=== PATIENT | female | born 1965 | race Hispanic/Latino ===

== ENCOUNTER 2018-02-23 07:10 | Emergency (ER) | payer SELFPAY ==
[2018-02-23 07:36] LABS: #Basophils 0.1 thou/uL (0.0-0.2); #Eosinphils 0.1 thou/uL (0.0-0.7); #Lymphocytes 2.8 thou/uL (1.20-3.40); #Monocytes 0.5 thou/uL (0.11-0.59); #Neutrophils 5.4 thou/uL (1.40-6.50); %Basophils 0.9 % (0.0-1.0); %Eosinophils 1.4 % (0.0-10.0); %Lymphocytes 31.4 % (21.0-51.0); %Monocytes 5.6 % (0.0-10.0); %Neutrophils 60.8 % (42.0-75.0); Hemoglobin 13.4 g/dL (12.0-16.0); Mean Corpuscular HGB CONC 33.9 g/dL (32.0-36.0); Mean Corpuscular Hemoglobin 32.5 pg (27.0-31.0); Mean Corpuscular Volume 95.8 fl (81.0-99.0); Mean Platelet Volume 7.9 fL (7.4-10.4); Platelet Count 289 thou/uL (130-400); RBC Distribution Width 12.3 % (11.5-14.5); Red Blood Cell (RBC) Count 4.12 mill/uL (4.20-5.40); White Blood Cell (WBC) Count 8.8 thou/uL (4.8-10.8)
[2018-02-23 07:56] LABS: Bilirubin Negative (Negative); Blood, Urine Large (Negative); Clarity CLOUDY (Clear); Glucose, Urine (Dipstick) Negative (Negative); Leukocyte Large (Negative); Nitrite Negative (Negative); Protein, Urine (Dipstick) 100 mg/dL (Neg-Trace); Specific Gravity, Urine 1.013 (1.002-1.036); Urobilinogen 0.2 mg/dL (0.2-1.0); pH, Urine 5.5 (5.0-9.0)
[2018-02-23 07:58] LABS: Bacteria/HPF Rare-Few HPF (None Seen); Hyaline Casts/LPF 0-3 HYALINE CAST LPF (0-3 Hyaline); Pathc Cast-AUWi Flag 0.14 (0-2.49); RBC/HPF GREATER THAN 50-TNTC HPF (0-3); Squamous Epithelial 0-3 HPF (0-3)
[2018-02-23 08:06] LABS: ALT (SGPT) 31 U/L (8-55); AST (SGOT) 18 U/L (5-34); Albumin 4.1 g/dL (3.5-5.0); Alkaline Phosphatase 107 U/L (40-150); Anion Gap 13 mmol/L (10-20); BUN (Urea Nitrogen) 11 mg/dL (9.8-20.1); Bilirubin, Total 0.5 mg/dL (0.2-1.2); Calc. Creatinine Clearance 0 mL/min (70-130); Calcium 9.6 mg/dL (7.8-10.44); Carbon Dioxide 25 mmol/L (22-29); Chloride 106 mmol/L (98-107); Estimated GFR-MDRD 83; Globulin 3.3 g/dL (2.4-3.5); Glucose 153 mg/dL (70-105); Potassium 4.5 mmol/L (3.5-5.1); Protein, Total 7.4 g/dL (6.0-8.3); Sodium 139 mmol/L (136-145)
== END 2018-02-23 08:26 | disposition home or self-care (01) ==
LOC: ERS 07:10
DX: N30.01 Acute cystitis with hematuria (principal); E11.9 Type 2 diabetes mellitus without complications; I10 Essential (primary) hypertension
CPT/HCPCS: 36415; 80053; 81003; 81015; 85025; 99283

== ENCOUNTER 2019-03-24 16:14 | Inpatient (IN) | payer SELFPAY ==
[~2019-03-24 16:14] MED LIST: ISOVUE-370 76%-LOCM 1 ML ONE
[2019-03-24 17:27] LABS: #Basophils 0.1 thou/uL (0.0-0.2); #Monocytes 0.5 thou/uL (0.11-0.59); #Neutrophils 11.1 thou/uL (1.40-6.50); %Basophils 0.4 % (0.0-1.0); %Eosinophils 0.2 % (0.0-10.0); %Lymphocytes 14.7 % (21.0-51.0); %Monocytes 3.5 % (0.0-10.0); %Neutrophils 81.1 % (42.0-75.0); Hemoglobin 13.5 g/dL (12.0-16.0); Mean Corpuscular HGB CONC 34.9 g/dL (32.0-36.0); Mean Corpuscular Hemoglobin 31.7 pg (27.0-31.0); Mean Corpuscular Volume 90.8 fL (78.0-98.0); Mean Platelet Volume 8.2 fL (7.4-10.4); Platelet Count 325 thou/uL (130-400); Red Blood Cell (RBC) Count 4.27 mill/uL (4.20-5.40); White Blood Cell (WBC) Count 13.7 thou/uL (4.8-10.8)
[2019-03-24 17:53] LABS: ALT (SGPT) 18 U/L (8-55); AST (SGOT) 17 U/L (5-34); Albumin 4.2 g/dL (3.5-5.0); Alkaline Phosphatase 102 U/L (40-150); Anion Gap 19 mmol/L (10-20); BUN (Urea Nitrogen) 11 mg/dL (9.8-20.1); Bilirubin, Total 0.4 mg/dL (0.2-1.2); Calc. Creatinine Clearance 0 mL/min (70-130); Calcium 9.5 mg/dL (7.8-10.44); Carbon Dioxide 18 mmol/L (22-29); Chloride 101 mmol/L (98-107); Estimated GFR-MDRD 81; Globulin 3.8 g/dL (2.4-3.5); Glucose 147 mg/dL (70-105); Lipase 723 U/L (8-78); Potassium 3.9 mmol/L (3.5-5.1); Sodium 134 mmol/L (136-145)
[2019-03-24 18:35] LABS: Bilirubin Negative (Negative); Blood, Urine Negative (Negative); Clarity Clear (Clear); Glucose, Urine (Dipstick) Normal (Negative); Leukocyte Negative Leu/uL (Negative); Nitrite Negative (Negative); Protein, Urine (Dipstick) 10 mg/dL (Neg-Trace); Squamous Epithelial 0-3 HPF (0-3); Urobilinogen Normal mg/dL (Less than 2); WBC/HPF 0-3 HPF (0-3)
[2019-03-24 18:39] LABS: Bacteria/HPF None Seen HPF (None Seen)
[2019-03-24] MEDS ORDERED: Morphine 4 MG/ML VIAL ONE (20:05)
[2019-03-24] MEDS ORDERED: Ketorolac Tromethamine 30 MG/ML VIAL ONE (20:05)
--- NOTE | 2019-03-24 20:11 | CT ---
CT Abdomen Pelvis W Con: 03/24/2019 12:00 AM CLINICAL INFORMATION: Abdominal pain in the right suprapubic region radiating across the abdomen COMPARISON: None. TECHNIQUE: Multiple contiguous axial images were obtained and a CT of the abdomen and pelvis with IV contrast. Oral contrast was administered. Coronal reformats were performed. FINDINGS: Lower Chest: within normal limits. Abdomen: Liver: within normal limits. Bile Ducts: Normal caliber. Gallbladder: Surgically absent Pancreas: Stranding changes around the tail the pancreas most likely secondary to acute pancreatitis. Normal enhancement of the pancreas is seen. Spleen: within normal limits. Adrenals: within normal limits. Kidneys: within normal limits. Pelvis: Reproductive Organs: Status post hysterectomy Ureters: within normal limits. Bladder: within normal limits. Peritoneum: No free air or focal fluid collection Bowel: Normal caliber. Mesentery and Retroperitoneum: No enlarged mesenteric or retroperitoneal lymph nodes. Vessels: Normal. Abdominal Wall: within normal limits. Bones: Degenerative changes in the spine. IMPRESSION: Acute pancreatitis
[2019-03-24 20:14] LABS: Hemoglobin A1c 6.3 % (4.0-6.0)
[2019-03-24] MEDS ORDERED: Ondansetron PF 4 MG/2 ML Vial ONE (20:14)
[2019-03-24] MEDS ORDERED: Ondansetron PF 4 MG/2 ML Vial IVP PRN (21:27)
[2019-03-24] MEDS ORDERED: Acetaminophen 325 MG TAB PO PRN (21:27)
[2019-03-24] MEDS ORDERED: Ondansetron ODT 4 MG TAB PO PRN (21:27)
[2019-03-24] MEDS: Sodium Chloride 0.9% 1,000 ML IV SCH (22:00)
[2019-03-24 22:30] VITALS: BMI 25.8
[2019-03-24] MEDS ORDERED: Dextrose 50% Abboject 50 ML SYRINGE SLOW IVP PRN (22:34)
[2019-03-24] MEDS ORDERED: Dextrose 5% in Water 1,000 ML IV PRN (22:34)
[2019-03-24] MEDS ORDERED: HumaLOG 300 UNITS/3 ML VIAL SC PRN (22:34)
[2019-03-24] MEDS ORDERED: CCU Electrolyte Replacement 1 EACH IVPB ONE (22:44)
[2019-03-24] MEDS ORDERED: Dextrose 5 %-0.45 % NaCl 1,000 ML IV PRN (23:00)
[2019-03-24] MEDS ORDERED: Potassium Phosphate 15 MMOL in Sodium Chloride 0.9% 250 ML 250 ML IV PRN (23:01)
[2019-03-24] MEDS ORDERED: PHOS-NAK 1 PKT PACK PO PRN ×2 (23:01)
[2019-03-24] MEDS ORDERED: Potassium Chloride 40 MEQ in Sodium Chloride 0.9% 250 ML 250 ML IVPB PRN (23:01)
[2019-03-24] MEDS ORDERED: Potassium Chloride 20 MEQ TAB PO PRN (23:01)
[2019-03-24] MEDS ORDERED: Potassium Phosphate 9 MMOL in Sodium Chloride 0.9% 100 ML IVPB PRN (23:01)
[2019-03-24] MEDS ORDERED: CCU ELECTROLYTE REPLACEMENT PROTOCOL FS PRN (23:01)
[2019-03-24] MEDS ORDERED: Magnesium Oxide 400 MG TAB PO PRN ×2 (23:01)
[2019-03-24] MEDS ORDERED: Potassium Phosphate 12 MMOL in Sodium Chloride 0.9% 250 ML 250 ML IV PRN (23:01)
[2019-03-24] MEDS ORDERED: Potassium Chloride 40 MEQ in Premix Bag 1 BAG IVPB PRN (23:01)
[2019-03-24] MEDS ORDERED: Magnesium 2 GM/50 ML 2 GM in Premix Bag 1 BAG IVPB PRN (23:01)
[2019-03-24] MEDS ORDERED: HUMULIN R 100 UNITS in Sodium Chloride 0.9% 100 ML IVPB SCH (23:15)
[2019-03-24] MEDS: Morphine 4 MG/ML VIAL SLOW IVP PRN (23:32)
[2019-03-25] MEDS: D5 1/2 NS w/20 mEq KCL 1,000 ML IV SCH ×2 (00:42→06:42)
--- NOTE | 2019-03-25 03:17 | HP ---
PRIMARY CARE DOCTOR: The patient goes to [facility]. CODE STATUS: Full code. TIME OF EVALUATION: 8:40 pm. CHIEF COMPLAINT: Abdominal pain. HISTORY OF PRESENT ILLNESS: A 53-year-old female patient with past medical history of pancreatitis, diabetes type 2, hypertension, came to the hospital after having severe gradually worsening abdominal pain that started at 11:00 am associated with nausea, vomiting, headache. No clear triggers, no alleviating factors. The pain is diffuse and radiates to the back and reported as 10/10. REVIEW OF SYSTEMS: CONSTITUTIONAL: No fever. The patient had chills, generalized weakness. RESPIRATORY: The patient no cough, sputum production, or shortness of breath. CARDIOVASCULAR: No chest pain or palpitation. GASTROINTESTINAL: The patient has nausea, vomiting. No diarrhea. The patient has abdominal pain as described in HPI. HOOP ROLLS OPERATOR: No dizziness, headache, or feeling lightheaded. GENITOURINARY: No burning on urination. EXTREMITIES: No leg swelling. All other systems were reviewed and negative except for the findings mentioned above. PAST MEDICAL HISTORY: As mentioned in the HPI. FAMILY HISTORY: Reviewed and noncontributory to current presentation. PAST SURGICAL HISTORY: The patient had a bladder lift surgery, cholecystectomy, hysterectomy. PSYCHIATRIC HISTORY: No previous psych history. SOCIAL HISTORY: No alcohol. No drugs. No smoking history. KNOWN ALLERGIES: No known drug allergies. REPORTED MEDICATIONS: 1. Metformin. 2. Levothyroxine. 3. Pantoprazole. PHYSICAL EXAMINATION: VITAL SIGNS: On presentation, blood pressure is 160/88 with heart rate 79, respiratory rate 22, temperature 100.1, pain 10/10. GENERAL APPEARANCE: The patient is alert, oriented, in no acute distress. HEENT: Eyes, normal conjunctivae. Moist oral mucosa. Anicteric. No JVD. RESPIRATORY: Bilateral air entry. No rales or wheezes. Symmetric expansion. CARDIOVASCULAR: Normal rate. Regular rhythm. No murmurs. No gallop. No edema. ABDOMEN: Soft. Normal bowel sounds. The patient has abdominal tenderness that is improved with pain medication. MUSCULOSKELETAL: Baseline range of motion and strength. No tenderness. SKIN: Warm, intact. No pallor. No rash. No redness. Capillary refill seems to be intact. NEUROLOGICAL: No evidence of any new focal weakness. Cranial nerves seem to be intact. PSYCH: The patient is in good mood. No anxiety. Optimal judgment. DIAGNOSTIC DATA: CT abdomen was reviewed, it showed acute pancreatitis. LABORATORY DATA: Reviewed. The patient has a white count of 13.7, hemoglobin 13.5, platelet count 225. Chemistry; sodium 134, potassium 3.9, chloride 101, carbon dioxide 18, anion gap 19, BUN 11, creatinine 0.75, GFR 81, glucose 147. Hemoglobin A1c 6.3, calcium 9.5. LFTs were negative. Globulin 3.8. Triglycerides 254, lipase 123. UA was done, was negative. ASSESSMENT AND PLAN: The patient will be placed in the hospital with the following medical problems: 1. Acute pancreatitis, likely secondary to hypertriglyceridemia. The patient presented with acute abdominal pain, nausea, and vomiting. Also had positive CT abdomen for acute pancreatitis and elevated lipase. Triglycerides are in the range of 254. The patient will be continued on fluids, also pain medications. 2. Hypertriglyceridemia. We will start the patient on treatment for it. We will control diabetes and we will monitor. The patient will be placed n.p.o. 3. Uncontrolled diabetes with a glucose of 147, hyperglycemic, reconcile home medications. Place the patient on sliding scale for optimal control. 4. Leukocytosis. The patient has a white count 13.7. We will monitor, likely due to underlying pancreatitis. 5. Hypothyroidism. The patient is on levothyroxine 25 mcg daily, continue for now. 6. Possible systemic inflammatory response syndrome from acute pancreatitis. The patient has respiratory rate of 22 on presentation. Leukocytosis, source pancreatitis, mild temperature. No evidence of acute infection at this point. 7. Uncontrolled hypertension. The patient has systolic blood pressure of 160. Reconcile home medications and treat accordingly. Could be related to pain, we will control pain. 8. Deep venous thrombosis prophylaxis. 9. High risk due to acute pancreatitis and need for appropriate medications IV for optimal control. This places the patient at high risk for complications. Job ID: [id number]
[2019-03-25] MEDS: Sodium Chloride 0.9% 1,000 ML IV SCH ×5 (05:21→23:40)
[2019-03-25 06:09] LABS: #Basophils 0.1 thou/uL (0.0-0.2); #Eosinphils 0.1 thou/uL (0.0-0.7); #Lymphocytes 2.4 thou/uL (1.20-3.40); #Monocytes 0.7 thou/uL (0.11-0.59); #Neutrophils 5.2 thou/uL (1.40-6.50); %Basophils 0.7 % (0.0-1.0); %Eosinophils 1.5 % (0.0-10.0); %Lymphocytes 28.7 % (21.0-51.0); %Monocytes 7.8 % (0.0-10.0); %Neutrophils 61.4 % (42.0-75.0); Hemoglobin 10.9 g/dL (12.0-16.0); Mean Corpuscular HGB CONC 33.6 g/dL (32.0-36.0); Mean Corpuscular Hemoglobin 31.3 pg (27.0-31.0); Mean Corpuscular Volume 93.3 fL (78.0-98.0); Platelet Count 270 thou/uL (130-400); RBC Distribution Width 12.4 % (11.5-14.5); Red Blood Cell (RBC) Count 3.48 mill/uL (4.20-5.40); White Blood Cell (WBC) Count 8.5 thou/uL (4.8-10.8)
[2019-03-25 06:30] LABS: Anion Gap 10 mmol/L (10-20); BUN (Urea Nitrogen) 8 mg/dL (9.8-20.1); Calc. Creatinine Clearance 108 mL/min (70-130); Calcium 8.2 mg/dL (7.8-10.44); Carbon Dioxide 25 mmol/L (22-29); Chloride 108 mmol/L (98-107); Estimated GFR-MDRD Greater than 90; Glucose 119 mg/dL (70-105); Potassium 3.6 mmol/L (3.5-5.1); Sodium 139 mmol/L (136-145)
[2019-03-25] MEDS ORDERED: D5 1/2 NS w/20 mEq KCL 1,000 ML IV SCH (07:00)
[2019-03-25] MEDS: Fenofibrate 48 MG TAB PO SCH (09:04)
[2019-03-25] MEDS: Enoxaparin Sodium 40 MG/0.4 ML SYRINGE SC SCH (09:04)
--- NOTE | 2019-03-25 16:27 | PDOC.PN ---
- Subjective Encounter Start Date: 03/25/19 Encounter Start Time: 07:45 Subjective: abd pain is better, no sob -: no nausea, is npo - Objective Resuscitation Status - Order Detail: 03/24/19 21:27 Resuscitation Status Routine Resuscitation Status: FULL: Full Resuscitation MAR Reviewed: Yes Vital Signs & Weight: Vital Signs (12 hours) Temp Pulse Ox 03/25/19 15:02 99.6 F 03/25/19 10:42 100.3 F H 03/25/19 07:50 97 03/25/19 07:06 98.6 F 03/25/19 04:39 97.3 F L Weight Weight 155 lb 2 oz I&O: 03/24/19 03/25/19 03/26/19 06:59 06:59 06:59 Intake Total 1041 Balance 1041 Result Diagrams: 03/25/19 05:41 03/25/19 05:41 Additional Labs: Accuchecks 03/25/19 03/25/19 03/25/19 09:01 05:11 04:14 POC Glucose 113 H 123 H 113 H 03/25/19 03/25/19 03/25/19 03:13 02:35 01:20 POC Glucose 93 108 134 H 03/24/19 22:50 POC Glucose 126 H Phys Exam - Physical Examination HEENT: PERRLA, sclera anicteric Neck: no JVD, supple Respiratory: no wheezing, no rales Cardiovascular: RRR, no significant murmur Gastrointestinal: soft, no distention, positive bowel sounds Musculoskeletal: no edema, pulses present Neurological: non-focal, moves all 4 limbs Psychiatric: normal affect, A&O x 3 Dx/Plan (1) Acute pancreatitis Code(s): K85.90 - ACUTE PANCREATITIS WITHOUT NECROSIS OR INFECTION, UNSP Status: Acute (2) Hypertriglyceridemia Code(s): E78.1 - PURE HYPERGLYCERIDEMIA Status: Acute (3) DM type 2 (diabetes mellitus, type 2) Status: Chronic Qualifiers: Diabetes mellitus retirement insulin use: without superintendent marine oil terminal use (4) HTN (hypertension) Code(s): I10 - ESSENTIAL (PRIMARY) HYPERTENSION Status: Chronic Qualifiers: Hypertension type: essential hypertension Qualified Code(s): I10 - Essential (primary) hypertension (5) Hypothyroidism Code(s): E03.9 - HYPOTHYROIDISM, UNSPECIFIED Status: Chronic Qualifiers: Hypothyroidism type: unspecified Qualified Code(s): E03.9 - Hypothyroidism , unspecified - Plan dc insulin drip, continue iv fluids -: january tx to med floor -: await GI opinion -: start crestor, tricor, fish oil and continue home dose synthroid -: morphine prn pain, liq diet * . Review of Systems - Medications/Allergies Allergies/Adverse Reactions: Allergies Allergy/AdvReac Type Severity Reaction Status Date / Time No Known Allergies Allergy Verified 03/24/19 21:52 Medications: Current Medications Acetaminophen (Tylenol) 650 mg PO Q4H PRN PRN Reason: Headache/Fever/Mild Pain (1-3) Dextrose/Water (Dextrose 50%) 25 gm SLOW IVP PRN PRN PRN Reason: Hypoglycemia Enoxaparin Sodium (Lovenox) 40 mg SC 0900 [facility] Last Admin: 03/25/19 09:04 Dose: 40 mg Fenofibrate (Tricor) 48 mg PO DAILY [facility] Last Admin: 03/25/19 09:04 Dose: 48 mg Fish Oil (Fish Oil) 1,000 mg PO HS [facility] Glucagon (Glucagon) 1 mg IM PRN PRN PRN Reason: Hypoglycemia Sodium Chloride (Normal Saline 0.9%) 1,000 mls @ 200 mls/hr IV .Q5H [facility] Last Admin: 03/25/19 09:07 Dose: Not Given Dextrose/Water (D5w) 1,000 mls @ 0 mls/hr IV .Q0M PRN PRN Reason: Hypoglycemia Levothyroxine Sodium (Synthroid) 50 mcg PO 0600 [facility] Metformin HCl (Glucophage) 500 mg PO BID-[facility] Morphine Sulfate (Morphine) 2 mg SLOW IVP Q4H PRN PRN Reason: Severe Pain (7-10) Last Admin: 03/24/19 23:32 Dose: 2 mg Ccu Electrolyte (Replacement Protocol) 0 each FS PRN PRN PRN Reason: FOR ELECTROLYTE REPLACEMENT Ondansetron HCl (Zofran) 4 mg IVP Q6H PRN PRN Reason: Nausea/Vomiting Rosuvastatin Calcium (Crestor) 20 mg PO HS [facility]
[2019-03-25] MEDS: metFORMIN 500 MG TAB PO SCH (18:14)
[2019-03-25] MEDS: Morphine 4 MG/ML VIAL SLOW IVP PRN (18:14)
[2019-03-25] MEDS: Fish Oil 1,000 MG CAP PO SCH (19:59)
[2019-03-25] MEDS: Rosuvastatin 20 MG TAB PO SCH (19:59)
[2019-03-26] MEDS: Levothyroxine Sodium 50 MCG TAB PO SCH (05:05)
[2019-03-26] MEDS: Sodium Chloride 0.9% 1,000 ML IV SCH ×4 (05:06→20:15)
[2019-03-26 05:58] LABS: #Eosinphils 0.2 thou/uL (0.0-0.7); #Lymphocytes 2.9 thou/uL (1.20-3.40); #Monocytes 0.7 thou/uL (0.11-0.59); #Neutrophils 5.3 thou/uL (1.40-6.50); %Basophils 0.2 % (0.0-1.0); %Eosinophils 2.2 % (0.0-10.0); %Lymphocytes 31.7 % (21.0-51.0); %Monocytes 7.5 % (0.0-10.0); %Neutrophils 58.5 % (42.0-75.0); Hemoglobin 10.9 g/dL (12.0-16.0); Mean Corpuscular HGB CONC 33.4 g/dL (32.0-36.0); Mean Corpuscular Hemoglobin 31.4 pg (27.0-31.0); Mean Corpuscular Volume 93.9 fL (78.0-98.0); Mean Platelet Volume 8.5 fL (7.4-10.4); Platelet Count 265 thou/uL (130-400); RBC Distribution Width 12.6 % (11.5-14.5); Red Blood Cell (RBC) Count 3.49 mill/uL (4.20-5.40); White Blood Cell (WBC) Count 9.1 thou/uL (4.8-10.8)
[2019-03-26 06:22] LABS: ALT (SGPT) 13 U/L (8-55); AST (SGOT) 10 U/L (5-34); Albumin 3.1 g/dL (3.5-5.0); Alkaline Phosphatase 60 U/L (40-150); Anion Gap 9 mmol/L (10-20); BUN (Urea Nitrogen) 4 mg/dL (9.8-20.1); Bilirubin, Total 0.7 mg/dL (0.2-1.2); Calc. Creatinine Clearance 104 mL/min (70-130); Calcium 8.5 mg/dL (7.8-10.44); Carbon Dioxide 25 mmol/L (22-29); Chloride 111 mmol/L (98-107); Estimated GFR-MDRD 89; Globulin 2.5 g/dL (2.4-3.5); Glucose 145 mg/dL (70-105); Protein, Total 5.6 g/dL (6.0-8.3); Sodium 141 mmol/L (136-145)
[2019-03-26 06:38] LABS: Free T4 (Free Thyroxine) 0.79 ng/dL (0.70-1.48); Thyroid Stimulating Hormone 2.8955 uIU/mL (0.35-4.94)
[2019-03-26] MEDS: Enoxaparin Sodium 40 MG/0.4 ML SYRINGE SC SCH (09:12)
[2019-03-26] MEDS: metFORMIN 500 MG TAB PO SCH ×2 (09:12→17:07)
[2019-03-26] MEDS: Fenofibrate 48 MG TAB PO SCH (09:12)
--- NOTE | 2019-03-26 13:11 | PDOC.PN ---
- Subjective Encounter Start Date: 03/26/19 Encounter Start Time: 13:00 Subjective: abd pain is better, still its around 2-3/10, no nausea -: is tolerating liq diet, had bm yesterday -: at bedside - Objective Resuscitation Status - Order Detail: 03/24/19 21:27 Resuscitation Status Routine Resuscitation Status: FULL: Full Resuscitation MAR Reviewed: Yes Vital Signs & Weight: Vital Signs (12 hours) Temp Pulse Resp BP Pulse Ox 03/26/19 11:24 97.8 F 69 17 145/88 H 96 03/26/19 07:29 99 03/26/19 07:21 98.5 F 75 17 141/88 H 99 03/26/19 03:59 98.9 F 74 16 107/68 99 Weight Weight 155 lb 2 oz I&O: 03/25/19 03/26/19 03/27/19 06:59 06:59 06:59 Intake Total 1041 2761 Balance 1041 2761 Result Diagrams: 03/26/19 05:07 03/26/19 05:07 Additional Labs: Accuchecks 03/26/19 03/26/19 03/25/19 11:23 05:47 20:26 POC Glucose 96 132 H 131 H Phys Exam - Physical Examination HEENT: PERRLA, moist MMs Neck: no JVD, supple Respiratory: no wheezing, no rales Cardiovascular: RRR, no significant murmur Gastrointestinal: soft, no distention, positive bowel sounds Musculoskeletal: no edema, pulses present Neurological: non-focal, moves all 4 limbs Psychiatric: normal affect, A&O x 3 Dx/Plan (1) Acute pancreatitis Code(s): K85.90 - ACUTE PANCREATITIS WITHOUT NECROSIS OR INFECTION, UNSP Status: Acute (2) Hypertriglyceridemia Code(s): E78.1 - PURE HYPERGLYCERIDEMIA Status: Acute (3) DM type 2 (diabetes mellitus, type 2) Status: Chronic Qualifiers: Diabetes mellitus residential insulin use: without exterminator helper use (4) HTN (hypertension) Code(s): I10 - ESSENTIAL (PRIMARY) HYPERTENSION Status: Chronic Qualifiers: Hypertension type: essential hypertension Qualified Code(s): I10 - Essential (primary) hypertension (5) Hypothyroidism Code(s): E03.9 - HYPOTHYROIDISM, UNSPECIFIED Status: Chronic Qualifiers: Hypothyroidism type: unspecified Qualified Code(s): E03.9 - Hypothyroidism , unspecified - Plan decrease iv fluids, continue tricor, crestor and fish oil -: oral diabetic meds, solid diet -: dc plan in am if stable -: d/w pt and at bedside -: to ambulate in hallway as tolerated * . Review of Systems - Medications/Allergies Allergies/Adverse Reactions: Allergies Allergy/AdvReac Type Severity Reaction Status Date / Time No Known Allergies Allergy Verified 03/24/19 21:52 Medications: Current Medications Acetaminophen (Tylenol) 650 mg PO Q4H PRN PRN Reason: Headache/Fever/Mild Pain (1-3) Dextrose/Water (Dextrose 50%) 25 gm SLOW IVP PRN PRN PRN Reason: Hypoglycemia Enoxaparin Sodium (Lovenox) 40 mg SC 0900 [facility] Last Admin: 03/26/19 09:12 Dose: 40 mg Fenofibrate (Tricor) 48 mg PO DAILY [facility] Last Admin: 03/26/19 09:12 Dose: 48 mg Fish Oil (Fish Oil) 1,000 mg PO [facility] Last Admin: 03/25/19 19:59 Dose: 1,000 mg Glucagon (Glucagon) 1 mg IM PRN PRN PRN Reason: Hypoglycemia Dextrose/Water (D5w) 1,000 mls @ 0 mls/hr IV .Q0M PRN PRN Reason: Hypoglycemia Sodium Chloride (Normal Saline 0.9%) 1,000 mls @ 100 mls/hr IV .Q10H [facility] Levothyroxine Sodium (Synthroid) 50 mcg PO 0600 [facility] Last Admin: 03/26/19 05:05 Dose: 50 mcg Metformin HCl (Glucophage) 500 mg PO BID-[facility] Last Admin: 03/26/19 09:12 Dose: 500 mg Morphine Sulfate (Morphine) 2 mg SLOW IVP Q4H PRN PRN Reason: Severe Pain (7-10) Last Admin: 03/25/19 18:14 Dose: 2 mg Ccu Electrolyte (Replacement Protocol) 0 each FS PRN PRN PRN Reason: FOR ELECTROLYTE REPLACEMENT Ondansetron HCl (Zofran) 4 mg IVP Q6H PRN PRN Reason: Nausea/Vomiting Rosuvastatin Calcium (Crestor) 20 mg PO [facility] Last Admin: 03/25/19 19:59 Dose: 20 mg
[2019-03-26] MEDS: Rosuvastatin 20 MG TAB PO SCH (20:16)
[2019-03-26] MEDS: Fish Oil 1,000 MG CAP PO SCH (20:16)
[2019-03-27] MEDS: Levothyroxine Sodium 50 MCG TAB PO SCH (05:13)
[2019-03-27] MEDS: metFORMIN 500 MG TAB PO SCH (08:34)
[2019-03-27] MEDS: Fenofibrate 48 MG TAB PO SCH (08:34)
[2019-03-27] MEDS: Enoxaparin Sodium 40 MG/0.4 ML SYRINGE SC SCH (08:35)
[2019-03-27 09:22] LABS: #Eosinphils 0.3 thou/uL (0.0-0.7); #Lymphocytes 3.2 thou/uL (1.20-3.40); #Monocytes 0.5 thou/uL (0.11-0.59); #Neutrophils 4.9 thou/uL (1.40-6.50); %Basophils 0.4 % (0.0-1.0); %Eosinophils 3.1 % (0.0-10.0); %Monocytes 5.5 % (0.0-10.0); Hemoglobin 11.9 g/dL (12.0-16.0); Mean Corpuscular HGB CONC 33.2 g/dL (32.0-36.0); Mean Corpuscular Hemoglobin 31.4 pg (27.0-31.0); Mean Corpuscular Volume 94.7 fL (78.0-98.0); Platelet Count 315 thou/uL (130-400); RBC Distribution Width 12.6 % (11.5-14.5); Red Blood Cell (RBC) Count 3.79 mill/uL (4.20-5.40)
[2019-03-27 09:45] LABS: ALT (SGPT) 14 U/L (8-55); AST (SGOT) 10 U/L (5-34); Albumin 3.7 g/dL (3.5-5.0); Alkaline Phosphatase 76 U/L (40-150); Anion Gap 10 mmol/L (10-20); BUN (Urea Nitrogen) 6 mg/dL (9.8-20.1); Bilirubin, Total 0.5 mg/dL (0.2-1.2); Calc. Creatinine Clearance 101 mL/min (70-130); Calcium 9.7 mg/dL (7.8-10.44); Carbon Dioxide 27 mmol/L (22-29); Chloride 106 mmol/L (98-107); Estimated GFR-MDRD 86; Globulin 3.1 g/dL (2.4-3.5); Glucose 147 mg/dL (70-105); Protein, Total 6.8 g/dL (6.0-8.3); Sodium 139 mmol/L (136-145)
--- NOTE | 2019-03-27 11:35 | PDOC.PN ---
- Subjective Encounter Start Date: 03/27/19 Encounter Start Time: 08:30 Subjective: no abd pain, is tolerating oral solid diet -: is passing stool and flatus -: is ambulating in room, at bedside - Objective Resuscitation Status - Order Detail: 03/24/19 21:27 Resuscitation Status Routine Resuscitation Status: FULL: Full Resuscitation MAR Reviewed: Yes Vital Signs & Weight: Vital Signs (12 hours) Temp Pulse Resp BP Pulse Ox 03/27/19 08:00 99 03/27/19 07:32 98.6 F 77 16 113/76 99 03/27/19 04:00 98.1 F 77 16 105/70 98 03/27/19 00:00 98.5 F 79 16 114/74 98 Weight Admit Weight 155 lb 2 oz Weight 155 lb 2 oz I&O: 03/26/19 03/27/19 03/28/19 06:59 06:59 06:59 Intake Total 2761 4700 Balance 2761 4700 Result Diagrams: 03/27/19 09:09 03/27/19 09:09 Additional Labs: Accuchecks 03/26/19 03/26/19 03/26/19 20:09 15:47 11:23 POC Glucose 132 H 186 H 96 03/25/19 03/25/19 03/25/19 08:03 06:20 00:40 POC Glucose 108 125 H 117 H Phys Exam - Physical Examination HEENT: PERRLA, moist MMs Neck: no JVD, supple Respiratory: no wheezing, no rales Cardiovascular: RRR, no significant murmur Gastrointestinal: soft, non-tender, no distention, positive bowel sounds Musculoskeletal: no edema, pulses present Neurological: non-focal, moves all 4 limbs Psychiatric: normal affect, A&O x 3 Dx/Plan (1) Acute pancreatitis Code(s): K85.90 - ACUTE PANCREATITIS WITHOUT NECROSIS OR INFECTION, UNSP Status: Acute (2) Hypertriglyceridemia Code(s): E78.1 - PURE HYPERGLYCERIDEMIA Status: Acute (3) DM type 2 (diabetes mellitus, type 2) Status: Chronic Qualifiers: Diabetes mellitus termite helper insulin use: without termite helper use (4) HTN (hypertension) Code(s): I10 - ESSENTIAL (PRIMARY) HYPERTENSION Status: Chronic Qualifiers: Hypertension type: essential hypertension Qualified Code(s): I10 - Essential (primary) hypertension (5) Hypothyroidism Code(s): E03.9 - HYPOTHYROIDISM, UNSPECIFIED Status: Chronic Qualifiers: Hypothyroidism type: unspecified Qualified Code(s): E03.9 - Hypothyroidism , unspecified - Plan to continue lipitor, fenofibrate and fish oil -: home dm meds -: low fat, 1800 kcal diet, dietary consultation or provide information -: dc pt home * .
[2019-03-27 11:42] VITALS: BP 121/78; TEMP 98.5
--- NOTE | 2019-03-28 10:34 | DIS ---
DATE OF ADMISSION: 03/24/2019 DATE OF DISCHARGE: 03/27/2019 DISCHARGE DISPOSITION: Home. PRIMARY DISCHARGE DIAGNOSIS: Acute pancreatitis with hypertriglyceridemia, resolving. SECONDARY DISCHARGE DIAGNOSES: 1. Diabetes mellitus, type 2. 2. Hypertension. 3. Hypothyroidism. PROCEDURES DONE DURING HOSPITALIZATION: Abdominal and pelvic CAT scan with contrast done on the day of admission, showed findings of acute pancreatitis. There were stranding changes seen at the tail of pancreas. The bile ducts were of normal caliber. Gallbladder was surgically absent. Liver was within normal limits on the CAT scan. LABORATORY DATA: Hemoglobin and hematocrit are 12 and 36, platelet count 315. Discharge BUN and creatinine are 6 and 0.7. Discharge triglycerides were 369, on admission it was 1254. HbA1c 6.3. AST, ALT, and alkaline phosphatase were within normal limits on admission. Total bilirubin was 0.4 on admission. DISCHARGE MEDICATIONS: 1. Metformin 1000 mg twice daily. 2. Protonix 40 mg daily. 3. Lipitor 40 mg p.o. daily. 4. Tricor 48 mg p.o. daily. 5. Fish oil 1000 mg p.o. at bedtime. 6. Synthroid 50 mcg p.o. daily. 7. Lisinopril 5 mg daily. 8. Ultram 50 mg q.i.d. p.r.n. for pain. ALLERGIES: NO KNOWN DRUG ALLERGIES. DISCHARGE PLAN: The patient is to follow up with primary care physician in 1 week. BRIEF COURSE DURING HOSPITALIZATION: The patient initially came in with complaints of abdominal pain. This was associated with nausea, vomiting, and headache. Initial CT abdomen with contrast done in the ER on arrival showed findings of acute pancreatitis with hypertriglyceridemia. She was initially placed in ICU on insulin protocol to bring her triglycerides down and was generously hydrated. The patient's triglycerides responded well to insulin regimen and had dropped down to 390s. She was transferred to medical floor and was slowly weaned into solid food prior to discharge. The patient is tolerating solid food and is ambulating with no abdominal pain. She is also moving her bowels. She has remained hemodynamically stable. A dietary consultation was requested to help with her low-fat, heart healthy, 1800-kilocalorie diet on discharge. Please see a [id number] documentation for the day of discharge on [facility]. She is advised to follow up with her primary care physician in 1 week. Job ID: [id number] [facility]
== END 2019-03-27 15:43 | disposition home or self-care (01) | DRG 440 ==
LOC: ERS 16:14 → T4-B 20:22 → IMCU/EMU 03-25 00:36 → T4-B 03-25 17:51
PROVIDERS: ADMIT Hospitalist; ATTEND Hospitalist
DX: K85.90 Acute pancreatitis without necrosis or infection, unspecified (principal); E78.5 Hyperlipidemia, unspecified; I10 Essential (primary) hypertension; E78.1 Pure hyperglyceridemia; E11.65 Type 2 diabetes mellitus with hyperglycemia; D72.829 Elevated white blood cell count, unspecified; E03.9 Hypothyroidism, unspecified; Z90.49 Acquired absence of other specified parts of digestive tract; Z90.710 Acquired absence of both cervix and uterus; Z79.84 Long term (current) use of oral hypoglycemic drugs; Z79.899 Other long term (current) drug therapy
CPT/HCPCS: 36415; 36416; 74177; 80048; 80053; 81003; 83036; 83690; 84439; 84443; 84478; 84481; 85025; 96361; 96374; 96375; J1650; J1815; J1885; J2270; J2405; J3490; Q9966